=== PATIENT | male | born 1965 | race Caucasian/White ===

== ENCOUNTER 2019-01-22 12:41 | Day surgery (SDC) | payer OTHER | END 2019-01-22 16:45 | disposition home or self-care (01) | LOC: JASU-SURG 12:41 ==

== ENCOUNTER 2020-04-14 04:31 | Day surgery (SDC) | payer OTHER ==
[2020-04-11 17:12] VITALS: BMI 36.9
[2020-04-14] MEDS ORDERED: MIDAZOLAM HCL 2 MG/2 ML SINGLE DOSE VIAL ONE (15:12)
[2020-04-14] MEDS ORDERED: PROPOFOL 20 ML ONE (15:12)
--- NOTE | 2020-04-14 15:36 | OP ---
Operative Note - Note: Operative Date: 04/14/20 Pre-Operative Diagnosis: Left renal stone Operation: Left ESWL Findings: 6 mm lower pole left renal stone Post-Operative Diagnosis: Same as Pre-op Anesthesia: Regional Estimated Blood Loss (mls): 0 Operative Report Dictated: Yes
[2020-04-14 17:05] VITALS: BP 127/86; PULSE 58; TEMP 97.8
[2020-04-14] MEDS ORDERED: ONDANSETRON 4 MG/2 ML VIAL IVPUSH PRN (17:44)
[2020-04-14] MEDS ORDERED: ACETAMINOPHEN 325 MG TABLET (FP) PO PRN (17:44)
[2020-04-14] MEDS ORDERED: oxyCODONE HCL 5 MG TABLET PO PRN (17:44)
[2020-04-14] MEDS ORDERED: LACTATED RINGERS SOLUTION 1,000 ML IV SCH (17:45)
--- NOTE | 2020-04-14 19:22 | OP ---
DATE OF OPERATION: 04/14/2020 PREOPERATIVE DIAGNOSIS: Left renal stone. POSTOPERATIVE DIAGNOSIS: Left renal stone. PROCEDURE: Left extracorporeal shockwave lithotripsy. ATTENDING: Flako Modi M.D. ANESTHESIA: Fractional. DESCRIPTION OF PROCEDURE: Patient was brought in the operating room, placed in a supine position on the operating room table. Ultrasonography and fluoroscopy were performed. A 6-mm left lower pole stone was identified. Anesthesia and preoperative antibiotics were then administered. Shockwave lithotripsy was then performed. 2500 impulses at 17 joules of power were administered to the stone with excellent fragmentation of the stone noted under realtime ultrasonography and fluoroscopy. The patient tolerated the procedure very well. DISPOSITION: To recovery room. FLAKO RODRIGUEZ M.D. [id number]
== END 2020-04-14 18:40 | disposition home or self-care (01) ==
LOC: JASU-SURG 04:31
PROVIDERS: ATTEND Urology
PROC: 0TF4XZZ Fragmentation in Left Kidney Pelvis, External Approach (ICD-10-PCS; principal; 2020-04-14 14:15)
DX: N20.0 Calculus of kidney (principal)
CPT/HCPCS: 82962